=== PATIENT | female | born 1950 | race Caucasian/White ===

== ENCOUNTER → 2016-12-01 | Outpatient (CLI) | payer BC ==
[~2016-12-01] MED LIST: CENTTAB PO; CLOB0.0571 TOPICAL; PRAV10TA PO; TOBRSUS9 EACH EYE; TRIMSOL EACH EYE; ZYRT10CA PO
[2016-12-01 13:20] LABS: AUTOMATED NEUTROPHIL # 3.8 TH/MM3 (1.8-7.7); BASOPHIL % 0.5 % (0.0-2.0); EOSINOPHIL # 0.1 TH/MM3 (0-0.4); EOSINOPHIL % 1.3 % (0.0-4.0); HEMATOCRIT 41.6 % (35.0-46.0); HEMO FLAGS DIFF FINAL; LYMPH % 30.3 % (9.0-44.0); LYMPHOCYTE # 1.9 TH/MM3 (1.0-4.8); MEAN CORPUSCULAR HEMOGLOBIN 30.7 PG (27.0-34.0); MEAN CORPUSCULAR HGB CONC 33.3 % (32.0-36.0); MONO % 8.2 % (0.0-8.0); NEUT % 59.7 % (16.0-70.0); PLATELET COUNT 258 TH/MM3 (150-450); RED BLOOD COUNT 4.52 MIL/MM3 (4.00-5.30); RED CELL DISTRIBUTION WIDTH 12.9 % (11.6-17.2); WHITE BLOOD COUNT 6.3 TH/MM3 (4.0-11.0)
[2016-12-01 13:25] LABS: BACTERIA, URINE RARE /hpf; BLOOD, URINE NEG (NEG); COMMENT (UR) CULT NOT INDICATED; CULTURE IF INDICATED CULT NOT INDICATED; GLUCOSE,URINE NEG (NEG); KETONE, URINE NEG (NEG); NITRITE,URINE NEG (NEG); SQUAMOUS EPITHELIAL CELL URINE <1 /hpf (0-5); URINE COLOR YELLOW (YELLW/STRAW)
[2016-12-01 13:52] LABS: BICARBONATE 33.4 MEQ/L (21.0-32.0); POTASSIUM 4.6 MEQ/L (3.5-5.1)
--- NOTE | 2016-12-02 16:36 | EKG ---
Date Performed: 12/01/2016 Time Performed: 13:08:02 PTAGE: 66 years EKG: Sinus rhythm POSSIBLE LEFT ATRIAL ENLARGEMENT BORDERLINE ECG NO PREVIOUS TRACING DOCTOR: Irwin Meehan Interpretating Date/Time 12/02/2016 16:33:58
== END ==
LOC: CPRE 12:45
PROVIDERS: ATTEND Obstetrics & Gynecology
DX: Z01.810 Encounter for preprocedural cardiovascular examination (principal); Z01.812 Encounter for preprocedural laboratory examination; D25.9 Leiomyoma of uterus, unspecified; N85.00 Endometrial hyperplasia, unspecified; R94.31 Abnormal electrocardiogram [ECG] [EKG]
CPT/HCPCS: 36415; 80048; 81001; 85025; 86850; 86900; 86901; 93005

== ENCOUNTER 2016-12-03 10:45 | Observation (INO) | payer BC ==
--- NOTE | 2016-12-02 21:52 | MH ---
cc: MATHEW MURRAY DATE OF ADMISSION 12/03/2016 ADMISSION DIAGNOSIS Uterine fibroids, pelvic pressure, pelvic pain. HISTORY OF PRESENT ILLNESS The patient is 66-year-old single white female para 3-0-1-3, LMP age 54. Has a history of intermittent pelvic pressure and ovarian cysts. She was seen on 08/05/2016. Her Pap smear was normal. An ultrasound revealed endometrial thickening with uterine fibroids. Ovaries appeared normal. Endometrial biopsy that was performed on 04/28/16 was benign and she is now admitted for laparoscopy, planned LASH BSO, possible SAMUEL-BSO. PAST MEDICAL AND SURGICAL HISTORY Previous surgery, right trigger finger repair in 1975. MEDICATIONS Include: 1. Pravastatin. 2. Vitamins. 3. Zyrtec. 4. Clobetasol cream as needed. ALLERGIES None. TRANSFUSIONS None. OBSTETRICAL HISTORY Three vaginal deliveries. SOCIAL HISTORY She is a registered dietitian. Works with dialysis patients. . Alcohol, tobacco and drugs are none. FAMILY HISTORY Pertinent for mom dying of ovarian cancer at age 63. Father at 67 of carcinoma of the esophagus. PHYSICAL EXAMINATION GENERAL: This is a well-nourished, well-developed white female. VITAL SIGNS: Stable. HEENT: Examination is normal. CHEST: Clear. HEART: Regular rate. BREASTS: Symmetrical. ABDOMEN: Benign. PELVIC: Normal external genitalia and Bartholin's, urethral, Rodman's. Vagina is atrophic. Cervix is normal. Uterus is about 12 weeks size. Adnexal nonpalpable. ASSESSMENT As above. PLAN She is now admitted for laparoscopy, planned LASH BSO, possible SAMUEL BSO. While in the office I explained the procedures, the risks, benefits and complications possibility of an occult malignancy that could require additional treatment. The patient would like to proceed. MD FATEMEH Edwards/BYRON /9:21 PM /9:39 PM MTDD
[~2016-12-03] VITALS: Ht 167.6 cm; Wt 77.4 kg
[~2016-12-03 10:45] MED LIST changes: -TRIMSOL EACH EYE
[2016-12-03 10:55] VITALS: BP 130/61; PULSE 68; RESP 16; TEMP 97.1; O2SAT 99
[2016-12-03] MEDS ORDERED: ceFAZolin 2 GM PREMIX 50 ML ONE (11:34)
[2016-12-03] MEDS ORDERED: ACETAMINOPHEN 1000 MG/100 ML VIAL IV ONE (11:35)
[2016-12-03] MEDS ORDERED: LACTATED RINGER'S 1000 ML IV SCH (12:00)
[2016-12-03] MEDS ORDERED: PHENYLEPH/NS 1000 MCG/10 ML SYR IV ONE (12:00)
[2016-12-03] MEDS ORDERED: ePHEDrine/NS 25 MG/5 ML SYR IV ONE (12:00)
[2016-12-03] MEDS ORDERED: SODIUM CHLORID 0.9% 500 ML IV SCH (12:00)
[2016-12-03] MEDS ORDERED: PROPOFOL 200 MG/20 ML AMP IV ONE (12:00)
[2016-12-03] MEDS ORDERED: NEOSTIGMINE 3 MG/3 ML SYR IV ONE (12:00)
[2016-12-03] MEDS ORDERED: KETOROLAC TROMETHAMINE 60 MG/2 ML (IM) VIAL IM ONE (12:00)
[2016-12-03] MEDS ORDERED: ONDANSETRON HCL 4 MG/2 ML VIAL IV PUSH ONE (12:00)
[2016-12-03] MEDS ORDERED: METOPROLOL TARTRATE 25 MG TAB PO PRN (12:15)
[2016-12-03] MEDS ORDERED: ACETAMINOPHEN 1000 MG/100 ML VIAL IV SCH (12:15)
[2016-12-03] MEDS ORDERED: ceFAZolin 2 GM PREMIX 50 ML IV SCH (12:15)
[2016-12-03] MEDS ORDERED: INSULIN HUMAN REGULAR 1,000 UNITS/10 ML VIAL SQ PRN (12:15)
[2016-12-03] MEDS ORDERED: DEXAMETHASONE SOD PHOS 4 MG/ML VIAL ONE (12:36)
[2016-12-03] MEDS ORDERED: MIDAZOLAM HCL 5 MG/5 ML VIAL ONE (12:36)
[2016-12-03] MEDS ORDERED: FAMOTIDINE 20 MG/2 ML VIAL ONE (12:36)
[2016-12-03] MEDS ORDERED: ZOLPIDEM TARTRATE 5 MG TAB PO PRN (14:30)
[2016-12-03] MEDS ORDERED: SODIUM CHLORIDE 0.9% FLUSH 5 ML FLUSH FLUSH PRN (14:30)
[2016-12-03] MEDS ORDERED: PROMETHAZINE HCL 25 MG TAB PO PRN (14:30)
[2016-12-03] MEDS ORDERED: ONDANSETRON HCL 4 MG/2 ML VIAL IV PRN (14:30)
[2016-12-03] MEDS ORDERED: ONDANSETRON ODT 4 MG TAB PO PRN (14:30)
[2016-12-03] MEDS ORDERED: diphenhydrAMINE HCL 25 MG CAP PO PRN (14:30)
[2016-12-03] MEDS ORDERED: PROMETHAZINE INJ 25 MG/ML VIAL IM PRN (14:30)
[2016-12-03] MEDS ORDERED: HYDROmorphone HCL PF 1 MG/ML VIAL IV PRN (14:30)
[2016-12-03] MEDS ORDERED: BUPIVACAINE HCL PF 0.5% 30 ML VIAL NB ONE (14:41)
[2016-12-03] MEDS ORDERED: BUPIVACAINE LIPOSOME PF 1.3% 20 ML VIAL ONE (14:41)
[2016-12-03] MEDS ORDERED: fentaNYL CITRATE 250 MCG/5 ML AMP ONE (14:42)
[2016-12-03] MEDS ORDERED: MIDAZOLAM HCL 2 MG/2 ML VIAL ONE (14:42)
[2016-12-03] MEDS: KETOROLAC TROMETHAMINE 30 MG/ML (IVP) VIAL IVP SCH ×2 (14:48→20:45)
[2016-12-03] MEDS: D5-1/2 NS + KCL 20 MEQ INJ 1,000 ML IV SCH ×2 (15:00→23:03)
[2016-12-03 15:53] VITALS: BP 141/70; PULSE 62; RESP 18; TEMP 95.6; O2SAT 96
[2016-12-03 17:10] LABS: HEMATOCRIT 47.1 % (35.0-46.0); REVIEW FLAG FINAL
[2016-12-03] MEDS: TOBRAMYCIN 0.3%/DEXAMETHASONE 0.1% OPHT SUSP 5 ML BTL EACH EYE SCH ×2 (18:52→20:53)
[2016-12-03 20:30] VITALS: BP 121/55; PULSE 80; RESP 16; TEMP 98.4; O2SAT 95
[2016-12-03] MEDS: DOCUSATE SODIUM 100 MG CAP PO SCH (20:46)
[2016-12-03] MEDS: ACETAMINOPHEN 1000 MG/100 ML VIAL IV SCH (20:46)
[2016-12-03] MEDS: SODIUM CHLORIDE 0.9% FLUSH 5 ML FLUSH FLUSH SCH (20:53)
[2016-12-04] VITALS: BP 113/54; PULSE 72; RESP 16; TEMP 98.4; O2SAT 95
[2016-12-04 00:54] VITALS: O2SAT 96
[2016-12-04] MEDS: KETOROLAC TROMETHAMINE 30 MG/ML (IVP) VIAL IVP SCH ×2 (02:35→08:46)
[2016-12-04] MEDS: ACETAMINOPHEN 1000 MG/100 ML VIAL IV SCH (03:59)
[2016-12-04 04:00] VITALS: BP 114/59; PULSE 64; RESP 16; TEMP 96.6; O2SAT 96
[2016-12-04] MEDS: D5-1/2 NS + KCL 20 MEQ INJ 1,000 ML IV SCH (06:16)
[2016-12-04 08:00] VITALS: BP 140/73; PULSE 66; RESP 16; TEMP 96; O2SAT 99
--- NOTE | 2016-12-04 08:14 | MP ---
cc: MATHEW MURRAY DATE OF SURGERY 12/03/2016 ADMISSION DIAGNOSES Pelvic pain. Pelvic pressure. Uterine fibroids. POSTOPERATIVE DIAGNOSES Pelvic pain. Pelvic pressure. Uterine fibroids. PROCEDURE Laparoscopy, LASH, BSO. ANESTHESIA General ET. SURGEON Mathew Murray MD BINDERY CHIEF PARAS Evans ESTIMATED BLOOD LOSS FOR THE PROCEDURE About 100 cc FLUIDS 1 liter crystalloid. OBJECTIVE FINDINGS Following the induction of adequate general endotracheal anesthesia, the patient was prepped and draped supine on the operating room table in the dorsal lithotomy position in the usual sterile fashion with the bladder being drained by Sánchez catheterization. The abdomen was opened through a 3-cm curving infraumbilical incision using a knife to cut down through the skin to the fascia. The fascia was opened transversely, stripped from the muscles, the rectus muscle split in the midline and the peritoneum opened sharply without incident. A mini GelPort was placed, the laparoscope inserted, a 5 port placed in the left lower quadrant and a low pressure port in the right lower quadrant. Pelvic contents revealed the uterus to be about 12 weeks' size with fibroids. The tubes were normal. Both ovaries were atretic from sidewall adhesions. The appendix was normal. The cul-de-sacs were clear. Liver edge was normal. Working first on the left, the harmonic scalpel was used to lyse the adhesions and take the left ovarian vessels, the left mesosalpinx, left round ligament, left broad ligament, the left side of the bladder flap and the left uterine vessels. Same was done on the right. The harmonic scalpel was now used to amputate the fundus from the cervix and the uterus, tubes and ovaries extracted from the pelvis intact. Inspection revealed no bleeding. Both ureters had good peristalsis. Low-pressure tests were done in neutral and Trendelenburg position. There was no bleeding. The operative site was now closed with Evicel, the laparoscope removed, GelPort removed, the peritoneum sutured with 2-0 Vicryl running stitch, the fascia with a running locking stitch of 0 Vicryl from each corner to midline and tied; the subcu with running 3-0 Vicryl and the skin with a running subcuticular 3-0 Monocryl. The scope was now reinserted through the low port and used to inspect the GelPort site which was well closed. No bleeding, no entrapment. The pelvis was inspected; there was no bleeding. The scope was removed, the gas allowed to escape. The small ports closed with 3-0 Monocryl. The patient's legs were taken down from the stirrups. Counts were correct and the patient was awakened and taken to the recovery room in good condition. MD FATEMEH Edwards/ERICH /7:28 PM /8:03 AM
[2016-12-04 08:43] LABS: AUTOMATED NEUTROPHIL # 10.5 TH/MM3 (1.8-7.7); BASOPHIL % 0.1 % (0.0-2.0); HEMATOCRIT 39.5 % (35.0-46.0); HEMO FLAGS DIFF FINAL; LYMPH % 8.9 % (9.0-44.0); LYMPHOCYTE # 1.1 TH/MM3 (1.0-4.8); MEAN CELL VOLUME 92.5 FL (80.0-100.0); MEAN CORPUSCULAR HEMOGLOBIN 31.3 PG (27.0-34.0); MEAN CORPUSCULAR HGB CONC 33.8 % (32.0-36.0); MONO % 6.1 % (0.0-8.0); NEUT % 84.9 % (16.0-70.0); PLATELET COUNT 250 TH/MM3 (150-450); RED BLOOD COUNT 4.27 MIL/MM3 (4.00-5.30); RED CELL DISTRIBUTION WIDTH 12.9 % (11.6-17.2); WHITE BLOOD COUNT 12.3 TH/MM3 (4.0-11.0)
[2016-12-04] MEDS: SODIUM CHLORIDE 0.9% FLUSH 5 ML FLUSH FLUSH SCH (08:47)
[2016-12-04] MEDS: DOCUSATE SODIUM 100 MG CAP PO SCH (08:47)
[2016-12-04] MEDS: TOBRAMYCIN 0.3%/DEXAMETHASONE 0.1% OPHT SUSP 5 ML BTL EACH EYE SCH (08:48)
[2016-12-04] MEDS ORDERED: CETIRIZINE HCL 10 MG TAB PO SCH (09:00)
[2016-12-04 09:06] LABS: BICARBONATE 27.6 MEQ/L (21.0-32.0); POTASSIUM 4.5 MEQ/L (3.5-5.1)
== END 2016-12-04 12:01 | disposition home or self-care (01) ==
LOC: HSDC 10:45 → EDUNIT# 12:45 → HSDI 14:18 → HOCA 15:35
PROVIDERS: ADMIT Obstetrics & Gynecology; ATTEND Obstetrics & Gynecology
DX: N84.0 Polyp of corpus uteri (principal); N83.291 Other ovarian cyst, right side; D25.9 Leiomyoma of uterus, unspecified; R10.2 Pelvic and perineal pain; Z80.41 Family history of malignant neoplasm of ovary; Z01.810 Encounter for preprocedural cardiovascular examination
CPT/HCPCS: 00840; 36415; 58542; 64486; 80048; 81001; 85014; 85018; 85025; 86850; 86900; 86901; 88307; 93005; 94150; C9290; G0378; J0131; J0690; J1100; J1885; J2250; J2370; J2405; J2710; J3010; J3480; J7120